=== PATIENT | male | born 1945 | race Caucasian/White ===

== ENCOUNTER 2023-03-15 09:57 | Emergency (ER) | payer OTHER ==
[~2023-03-15] VITALS: Ht 170.2 cm; Wt 92.1 kg
[2023-03-15 10:05] VITALS: BP_SYST 169; PULSE 100; RESP 18; TEMP 97; O2SAT 96
[2023-03-15 10:53] LABS: BASOPHILS # (AUTO) 0.1 K/uL (0.0-0.2); BASOPHILS % (AUTO) 0.7 % (0.0-2.0); EOSINOPHILS # (AUTO) 0.1 K/uL (0.0-0.4); EOSINOPHILS % (AUTO) 1.5 % (0.0-4.0); HEMATOCRIT 37.9 % (36-54); HEMOGLOBIN 12.3 g/dL (14.0-18.0); LYMPHOCYTES # (AUTO) 1.3 K/uL (1.0-5.5); LYMPHOCYTES % (AUTO) 15.2 % (20.5-51.5); MEAN CORPUSCULAR HEMOGLOBIN 27 pg (27-31); MEAN CORPUSCULAR HGB CONC 32 % (32-36); MEAN CORPUSCULAR VOLUME 84 fL (79.0-98.0); MONOCYTES % (AUTO) 11.4 % (1.7-9.3); NEUTROPHILS # (AUTO) 6.1 K/uL (1.8-7.7); NEUTROPHILS % (AUTO) 71.2 % (40.0-70.0); PLATELET COUNT (AUTO) 164 K/uL (130-430); RED BLOOD CELL COUNT(AUTO) 4.51 MIL/uL (4.2-6.2); RED CELL DISTRIBUTION WIDTH 13.8 % (9.0-15.0); WHITE BLOOD COUNT (AUTO) 8.6 K/uL (4.8-10.8)
[2023-03-15 11:06] LABS: INR 0.9 (0.80-1.20); PROTHROMBIN TIME 9.5 SECS (9.5-12.5)
[2023-03-15 11:15] LABS: ALANINE AMINOTRANSFERASE 32 U/L (12-78); ALBUMIN 3.3 g/dL (3.4-4.8); ANION GAP 7 (5-15); ASPARTATE AMINOTRANSFERASE 22 U/L (10-37); CALCIUM 8.7 mg/dL (8.4-11.0); CARBON DIOXIDE 26 mmol/L (23-29); CHLORIDE 102 mmol/L (98-107); CREATININE 0.92 mg/dL (0.55-1.30); GLUCOSE 267 mg/dL (74-106); POTASSIUM 3.7 mmol/L (3.5-5.1); SODIUM SERUM 135 mmol/L (136-145); TOTAL BILIRUBIN 0.4 mg/dL (0.0-1.0); TOTAL PROTEIN, SERUM 7.9 g/dL (6.4-8.3); UREA NITROGEN, BLOOD 19 mg/dL (8-21)
[2023-03-15 13:27] VITALS: BP_SYST 169; PULSE 100; RESP 18; TEMP 97; O2SAT 96
== END 2023-03-15 13:26 | disposition home or self-care (01) ==
LOC: SED 09:57
DX: R22.32 Localized swelling, mass and lump, left upper limb (principal); Z88.8 Allergy status to other drugs, medicaments and biological substances
CPT/HCPCS: 36415; 80053; 83605; 85025; 85610-TC; 85730-TC; 93971; 99284